=== PATIENT | female | born 1950 | race African-American/Black ===

== ENCOUNTER → 2017-06-16 | Outpatient (CLI) | payer OTHER, MEDICAID | END | disposition home or self-care (01) | LOC: MAMMO 08:54 | DX: Z12.31 Encounter for screening mammogram for malignant neoplasm of breast (principal) | CPT/HCPCS: 77067 ==

== ENCOUNTER → 2018-06-17 | Outpatient (CLI) | payer OTHER, MEDICAID ==
[2018-01-13 11:00] VITALS: BP 97/39
[~2018-06-17] MED LIST: ACET325T9 PO; AMIT100T PO; AMLO5TAB10 PO; ASPI-482 PO; ATORVASTATIN CA80 MG PO; BUSP15TA PO; CARV25TA2 PO; CEFP200T PO; CEPH250C PO; DULA0.75 SQ; FERR325T58 PO; FURO40TA4 PO; IBUP-1027 PO; INSU100I13 SUBCUT; INSU100I17 SQ; LEVO137T3 PO; LISI-130 PO; LORA1TAB PO; METF500T16 PO; NYST15PO9 TOP; POTA20TA4 PO; TICA90TA PO; VENTOLIN HFA18 GM INH
--- NOTE | 2018-06-17 15:49 | RAD ---
DATE: 06/17/2018 EXAM: DIGITAL SCREEN BILAT W/CAD HISTORY: Routine screening COMPARISON: 06/16/2017 This study was interpreted with the benefit of Computerized Aided Detection (CAD). Breast Density: SCATTERED The breast parenchyma shows scattered fibroglandular densities. Breast parenchyma level B. FINDINGS: No new or enlarging breast densities are seen. There are numerous benign type calcifications in both breasts. No suspicious microcalcifications have developed. IMPRESSION: Stable mammograms without evidence of malignancy. BI-RADS CATEGORY: 2 BENIGN FINDING(S) RECOMMENDED FOLLOW-UP: 12M 12 MONTH FOLLOW-UP PQRS compliance statement: Patient information was entered into a reminder system with a target due date for the next mammogram. Mammography is a sensitive method for finding small breast cancers, but it does not detect them all and is not a substitute for careful clinical examination. A negative mammogram does not negate a clinically suspicious finding and should not result in delay in biopsying a clinically suspicious abnormality. "Our facility is accredited by the [employer] Mammography [employer]."
== END | disposition home or self-care (01) ==
LOC: MAMMO 14:30
PROVIDERS: ATTEND Internal Medicine
DX: Z12.31 Encounter for screening mammogram for malignant neoplasm of breast (principal)
CPT/HCPCS: 77067

== ENCOUNTER → 2018-06-30 | Outpatient (CLI) | payer OTHER, MEDICAID ==
[2018-01-13 11:00] VITALS: BP 97/39
[~2018-06-30] MED LIST changes: -AMLO5TAB10 PO; +AMLO5TAB7 PO
--- NOTE | 2018-06-30 15:50 | KCIC ---
EXAM: Dual energy x-ray absorptiometry (DEXA). HISTORY: Postmenopausal female presents for osteoporosis screening. COMPARISON: None. TECHNIQUE: Dual energy x-ray absorptiometry of the lumbar spine and left hip was performed. Calculation of bone mineral density based on standard deviations above or below the expected young adult normal value (T-score) was completed. FINDINGS: The average bone mineral density in the 1st through 4th lumbar vertebrae is 1.088 g/cmxcm, corresponding with a T-score of 0.4. The average total bone mineral density in the left hip is 1.031 g/cmxcm, corresponding with a T-score of 0.7. IMPRESSION: Normal bone mineral density. Note: Definitions established by the World Health Organization: 1. Normal: T-score is -1.0 or above. 2. Osteopenia: T-score is between -1.0 and -2.5 . 3. Osteoporosis: T-score is -2.5 or below. Electronically signed by: Cris Luciano MD (06/30/2018 3:46 PM) [place] [id number]
== END | disposition home or self-care (01) ==
LOC: KCIC DEXA 10:58
PROVIDERS: ATTEND Internal Medicine
DX: E28.39 Other primary ovarian failure (principal); Z78.0 Asymptomatic menopausal state
CPT/HCPCS: 77080

== ENCOUNTER → 2019-07-24 | Outpatient (CLI) | payer MEDICARE, MEDICAID ==
[2018-01-13 11:00] VITALS: BP 97/39
[~2019-07-24] MED LIST changes: +AMLO5TAB10 PO; -AMLO5TAB7 PO
--- NOTE | 2019-07-27 09:22 | RAD ---
History: Routine screening. Technique: Bilateral digital mammographic routine views were obtained with 2-D and 3-D technique including CAD - computer aided detection. Comparison: 06/17/2018. Findings: Breast Tissue Density B :The breast tissue is composed of mixed fatty and fibroglandular tissue. There are no suspicious masses, microcalcifications or areas of architectural distortion. Impression: Negative mammogram. BI-RADS Category 1: Negative. Normal interval followup. A mammogram does not have 100% sensitivity and therefore a negative imaging study should not delay further work up of a suspicious abnormality. The patient will receive a letter with the results in the mail. Patient information is entered into the reminder system with a target due date for the next screening mammogram. The patient will receive a reminder. "Our facility is accredited by the [employer]ammography [employer]." BI-RADS 1 -- negative findings (within normal)
== END | disposition home or self-care (01) ==
LOC: MAMMO 08:58
PROVIDERS: ATTEND Internal Medicine
DX: Z12.31 Encounter for screening mammogram for malignant neoplasm of breast (principal); N64.89 Other specified disorders of breast
CPT/HCPCS: 77063; 77067

== ENCOUNTER → 2020-10-18 | Outpatient (CLI) | payer MEDICARE, MEDICAID ==
[2018-01-13 11:00] VITALS: BP 97/39
[~2020-10-18] MED LIST changes: +AMLO-186 PO; -AMLO5TAB10 PO
--- NOTE | 2020-10-18 09:29 | RAD ---
EXAM: Bilateral digital screening mammogram with tomosynthesis. HISTORY: 70-year-old female presents for screening mammography. TECHNIQUE: Full-field digital craniocaudal and mediolateral oblique 2D and 3D tomosynthesis images of both breasts are obtained for evaluation. Computer aided detection was applied. COMPARISON: 06/30/2018 BREAST PARENCHYMAL DENSITY: Level B - Scattered fibroglandular densities. FINDINGS: There is no new suspicious mass, microcalcification or region of architectural distortion. There are multiple benign calcifications scattered throughout both breasts. There are stable areas of asymmetry and nodularity within both breasts. IMPRESSION: BI-RADS Category 2: Benign finding(s). RECOMMENDATION: Annual mammography is recommended. If your mammogram demonstrates that you have dense breast tissue, which could hide abnormalities, and if you have other risk factors for breast cancer that have been identified, you might benefit from s upplemental screening tests that may be suggested by your ordering physician. Dense breast tissue, i n and of itself, is a relatively common condition. This information is not provided to cause undue c oncern, but rather to raise your awareness and to promote discussion with your physician regarding th e presence of other risk factors, in addition to dense breast tissue. A report of your mammography re sults will be sent to you and your physician. You should contact your physician if you have any ques tions or concerns regarding this report. Mammography is a sensitive method for finding small breast cancers, but it does not detect them all a nd is not a substitute for careful clinical examination. A negative mammogram does not negate a clin ically suspicious finding and should not result in delay in biopsying a clinically suspicious abnorma lity. PQRS compliance statement - Patient information was entered into a reminder system with a target due date for the next mammogram. "Our facility is accredited by the [employer] Mammography [employer]." Electronically signed by: Cris Luciano MD (10/18/2020 9:27 AM) [id number]
== END ==
LOC: MAMMO 08:44
PROVIDERS: ATTEND Internal Medicine
DX: Z12.31 Encounter for screening mammogram for malignant neoplasm of breast (principal)
CPT/HCPCS: 77063; 77067

== ENCOUNTER → 2021-05-22 | Outpatient (CLI) | payer MEDICARE, MEDICAID ==
[2018-01-13 11:00] VITALS: BP 97/39
[~2021-05-22] MED LIST changes: +POTA-121 PO; -POTA20TA4 PO
--- NOTE | 2021-05-22 09:22 | RAD ---
EXAM: Right breast diagnostic mammogram with tomosynthesis; right breast sonogram. HISTORY: 71-year-old female presents with a palpable right chest wall lump. TECHNIQUE: Full-field digital craniocaudal and mediolateral oblique 2D and 3D tomosynthesis images of the right breast are obtained for evaluation. Computer aided detection was applied. Sonographic imag ing of the right breast and chest wall the site of palpable concern and axilla was also performed. COMPARISON: 10/18/2020 and 07/24/2019 BREAST PARENCHYMAL DENSITY: Level B - Scattered fibroglandular densities. FINDINGS: There is no new suspicious mass, microcalcification or region of architectural distortion. There are multiple benign calcifications. Sonographic imaging of the right breast demonstrates a circumscribed elongated nodule measuring 1.3 x 0.4 x 0.8 cm at the 1:00 position 18 cm from the nipple. This demonstrates an internal echogenic foc us with associated blood flow consistent with a fatty hilum within a lymph node. This demonstrates be nign morphology and corresponds with the site of palpable concern. No additional lesion is seen. IMPRESSION: 1. 1.3 cm benign-appearing lymph node within the posterior 1:00 position of the right breast along th e chest wall at the site of palpable concern. 2. No suspicious mammographic or sonographic finding. 3. BI-RADS Category 2: Benign finding(s). Continued clinical follow-up of palpable abnormalities is r ecommended. Repeat imaging can be performed if there is a change in physical exam findings or continu ing concern. If your mammogram demonstrates that you have dense breast tissue, which could hide abnormalities, and if you have other risk factors for breast cancer that have been identified, you might benefit from s upplemental screening tests that may be suggested by your ordering physician. Dense breast tissue, i n and of itself, is a relatively common condition. This information is not provided to cause undue c oncern, but rather to raise your awareness and to promote discussion with your physician regarding th e presence of other risk factors, in addition to dense breast tissue. A report of your mammography re sults will be sent to you and your physician. You should contact your physician if you have any ques tions or concerns regarding this report. Mammography is a sensitive method for finding small breast cancers, but it does not detect them all a nd is not a substitute for careful clinical examination. A negative mammogram does not negate a clin ically suspicious finding and should not result in delay in biopsying a clinically suspicious abnorma lity. PQRS compliance statement - Patient information was entered into a reminder system with a target due date for the next mammogram. "Our facility is accredited by the [employer] Mammography [employer]." Electronically signed by: Cris Luciano MD (05/22/2021 9:20 AM) [id number]
== END ==
LOC: MAMMO 08:44
PROVIDERS: ATTEND Internal Medicine
DX: N63.10 Unspecified lump in the right breast, unspecified quadrant (principal)
CPT/HCPCS: 76641; 77065; G0279; 77061